=== PATIENT | male | born 1995 | race Two or more races ===

== ENCOUNTER 2016-10-06 09:45 | Outpatient (RCR) | payer OTHER, MEDICAID ==
[2016-10-11] MEDS ORDERED: ZOLO100T PO (12:39)
[2017-01-21] MEDS ORDERED: GABA-283 PO (09:30)
== END 2016-10-15 | disposition home or self-care (01) ==
LOC: M PT 09:45
PROVIDERS: ATTEND Orthopaedic Surgery
DX: Z51.89 Encounter for other specified aftercare (principal); M25.579 Pain in unspecified ankle and joints of unspecified foot

== ENCOUNTER 2016-10-11 12:24 | Inpatient (IN) | payer OTHER, MEDICAID ==
[~2016-10-11] VITALS: Ht 175.3 cm; Wt 94.2 kg
[2016-10-11] MEDS ORDERED: ZOLO100T PO (12:39)
[2016-10-11 13:25] LABS: MEAN CORPUSCULAR HEMOGLOBIN 30.9 pg (27.0-33.0); MEAN CORPUSCULAR VOLUME 88.2 fl (80.0-96.0); RED CELL DISTRIBUTION WIDTH 12.1 % (11.5-14.5); WHITE BLOOD COUNT 9.2 K/mm3 (4.0-10.0)
[2016-10-11 13:35] LABS: METHADONE URINE NEGATIVE (NEGATIVE)
[2016-10-11 13:45] LABS: ALBUMIN 4.5 GM/DL (3.2-5.2); ALBUMIN/GLOBULIN RATIO 1.29 (1.00-1.93); ALKALINE PHOSPHATASE 88 U/L (45-117); ALT/SGPT 32 U/L (12-78); ANION GAP 6 MEQ/L (8-16); AST/SGOT 24 U/L (15-37); BILIRUBIN,DIRECT 0.1 MG/DL (0.0-0.2); BILIRUBIN,TOTAL 0.4 MG/DL (0.2-1.0); BLOOD UREA NITROGEN 15 MG/DL (7-18); CALCIUM LEVEL 9.5 MG/DL (8.5-10.1); CARBON DIOXIDE LEVEL 29 MEQ/L (21-32); CHLORIDE LEVEL 103 MEQ/L (98-107); CREATININE FOR GFR 0.76 MG/DL (0.70-1.30); GLOMERULAR FILTRATION RATE > 60.0 (>60); GLUCOSE, FASTING 93 MG/DL (70-105); POTASSIUM SERUM 4.3 MEQ/L (3.5-5.1); SODIUM LEVEL 138 MEQ/L (136-145)
[2016-10-11 21:09] VITALS: BP 146/80
[2016-10-11] MEDS ORDERED: MOM 30ML SUSPENSION UDC PO PRN (21:15)
[2016-10-11] MEDS ORDERED: traZODone 50 MG TAB PO PRN (21:15)
[2016-10-11] MEDS ORDERED: MAALOX 30 ML SUSP *UDC PO PRN (21:15)
[2016-10-12 06:36] VITALS: BP 125/61
--- NOTE | 2016-10-12 08:58 | HPEPDOC ---
Medical History and Physical Date of Admission Oct 11, 2016 at 16:31 History and Physical PCP: Dr Ryan Heaton SC ATTENDING: Dr. Fernando Chacko HPI: 21yoM admitted to [facility] for unspecified depressive disorder, being medically examined today. No acute medical complaints today. Denies any fevers, chills, weakness, fatigue, HEAD, CP, SOB, cough, palpitations, abdominal pain, N/V /D or changes in bowel or bladder habits. PMHx: Depression Anxiety PSHX: Left index finger laceration repair SOCHX: Resides in: [facility] Marital Status: Single Kids: None Employment: Unemployed Tobacco use: Denies ETOH: Denies Illicit Drugs: Patient states last used marijuana June 2016 IV Drug Use: Denies Tattoos done unprofessionally: Denies FAMHX: Mother: Alive, COPD, history of heroin use Father: Alive, heroin use Siblings: 2 sisters, one brother Alive, unknown Children: None Unexpected deaths due to medical reasons: None. ROS: As noted in HPI, otherwise 11pt ROS of systems reviewed and remarkable only for recent right ankle sprain. Patient states he was playing basketball when he twisted his ankle. He subsequently wore a brace and is currently attending physical therapy. PE: GEN: 21 yo M, appears stated age. Well-nourished, well developed. No acute distress. Alert and oriented x 3. Pleasant, interactive. HEENT: Normocephalic, atraumatic. Pupils are equal, round, and reactive to light. Extraocular movements are intact. No nystagmus appreciated. Sclera are nonicteric. Conjunctiva without injection. Nose midline. Nasal turbinates without bogginess. EACs both patent BL. TMs both visualized and pereyra with good cone of light, no bulging or erythema. No facial asymmetry. Moist mucous membranes. Dentition fair. Pharynx pink and moist, no cobblestoning. Neck supple , trachea midline. No lymphadenopathy or thyromegaly appreciated. CHEST: Regular rate and rhythm, +S1, +S2 LUNGS: Clear to auscultation bilaterally. No wheezes, rales, or rhonchi. Breathing appears symmetric and easy. Patient is speaking in full sentences. No accessory muscle use. ABD: Round, soft, non-tender, non-distended. +Bowel sounds throughout. No rebound or guarding. No costovertebral angle tenderness. EXT: Pulses 2+ bilaterally dorsalis pedis and radial. No lower extremity edema appreciated. SKIN: [place], dry, warm. Capillary refill <2sec. No rashes. NEURO: Alert and oriented x 3. Cranial nerves III-XII are intact. No focal deficits appreciated. EKG: Pending. A&P: 21yoM admitted to [facility] for unspecified depressive disorder 1. Psych. Plan per Psychiatry. Obtain baseline EKG to assure the safety of psychiatric medications as they can prolong the QT interval. 2. Recent right ankle sprain. Patient is no longer wearing a brace. Resume physical therapy as outpatient following discharge. 3. Follow up with PCP on discharge. 4. Staff member Nolan present throughout exam. Vital Signs Vital Signs Date Time Temp Pulse Resp B/P (MAP) Pulse Ox O2 Delivery O2 Flow Rate FiO2 10/12/16 06:36 98.7 78 18 125/61 (82) 10/11/16 20:27 98 Room Air Laboratory Data Labs 24H Laboratory Tests 2 10/11/16 13:08: Anion Gap 6L, Glomerular Filtration Rate > 60.0, Calcium Level 9.5, Aspartate Amino Transf (AST/SGOT) 24, Alanine Aminotransferase (ALT/SGPT) 32, Alkaline Phosphatase 88, Total Bilirubin 0.4, Direct Bilirubin 0.1, Total Protein 8.0, Albumin 4.5, Albumin/Globulin Ratio 1.29, Thyroid Stimulating Hormone (TSH) 0.555, Salicylates Level < 1.7L, Urine Amphetamines Screen NEGATIVE, Urine Benzodiazepines Screen NEGATIVE, Urine Opiates Screen NEGATIVE, Urine Methadone Screen NEGATIVE, Acetaminophen Level < 2.0L, Urine Barbiturates Screen NEGATIVE , Urine Phencyclidine Screen NEGATIVE, Urine Cocaine Metabolite Screen NEGATIVE , Urine Cannabinoids Screen NEGATIVE, Ethyl Alcohol Level < 0.003 CBC/BMP Laboratory Tests 10/11/16 13:08 Red Blood Count 5.27, Mean Corpuscular Volume 88.2, Mean Corpuscular Hemoglobin 30.9, Mean Corpuscular Hemoglobin Concent 35.0, Red Cell Distribution Width 12.1 Home Medications Scheduled Sertraline Hcl (Zoloft) 100 Mg Tab, 100 MG PO DAILY Allergies Coded Allergies: No Known Allergies (Unverified , 10/11/16) Leah Padilla Oct 12, 2016 08:58
[2016-10-12] MEDS ORDERED: SERTRALINE 100 MG TAB PO SCH (09:00)
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
[2016-10-12] MEDS: buPROPion 75 MG TAB PO SCH (16:02)
[2016-10-12 18:16] VITALS: BP 132/68
[2016-10-12] MEDS: DIVALPROEX 250 MG TAB PO SCH (21:13)
[2016-10-12] MEDS: ACETAMINOPHEN TAB 650MG DOSE (2X325MG) PO PRN (21:13)
[2016-10-12] MEDS: QUEtiapine FUMARATE 50 MG TAB PO PRN (22:25)
[2016-10-13 06:37] VITALS: BP 117/64
--- NOTE | 2016-10-13 07:45 | ECGEPIP ---
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
[2016-10-13] MEDS: buPROPion 75 MG TAB PO SCH (08:18)
[2016-10-13] MEDS: DIVALPROEX 250 MG TAB PO SCH ×2 (08:19→21:56)
[2016-10-13 18:10] VITALS: BP 132/75
[2016-10-13] MEDS: ACETAMINOPHEN TAB 650MG DOSE (2X325MG) PO PRN (19:13)
--- NOTE | 2016-10-13 19:16 | IPN ---
DATE: 10/13/2016 21-year-old male with history of depression and substance abuse admitted for depression and suicidal ideation. SUBJECTIVE: "I feel about the same." OBJECTIVE: No major changes from yesterday. The patient denies any side-effect from the medication. The patient reports slept better with the help of the treatment. No evidence of psychotic symptoms. No auditory or visual hallucinations or delusions. The patient is interacting better with other patients and staff. Has tendency to remain by himself in his room. MENTAL STATUS EXAMINATION: The patient dressed in [facility]. The patient is cooperative. Has poor eye contact. His speech is slow and monotone. Mood is depressed and anxious. Affect is restricted. No evidence of delusions or hallucinations. Memory is fair. The patient is fully oriented. Associations are intact. Thinking is logical. Thought content is appropriate. The patient is able to contract for safety during his hospitalization and denies suicidal or homicidal ideation during the interview. Insight and judgment is poor. ASSESSMENT: 1. Depression. 2. Suicidal ideation. 3. Substance abuse. PLAN: 1. Continue with Depakote 250 mg by mouth twice a day. 2. Continue with Seroquel 50 mg by mouth a day. 3. Continue Wellbutrin 75 mg by mouth every morning. 4. Continue close observation. 5. Continue medication management, individual and group therapy.
[2016-10-13] MEDS: QUEtiapine FUMARATE 50 MG TAB PO PRN (21:56)
[2016-10-14 06:45] VITALS: BP 118/58
[2016-10-14] MEDS: buPROPion 75 MG TAB PO SCH ×2 (08:54→20:52)
[2016-10-14] MEDS: DIVALPROEX 250 MG TAB PO SCH (08:55)
[2016-10-14] MEDS: ACETAMINOPHEN TAB 650MG DOSE (2X325MG) PO PRN ×2 (08:55→20:53)
--- NOTE | 2016-10-14 16:02 | IPN ---
DATE: 10/14/2016 A 21-year-old male with history of depression and substance abuse admitted for depression and suicidal ideation. SUBJECTIVE: "I'm feeling about the same." OBJECTIVE: Very little changes since admission. The patient continues to have tendency to stay in the room with little interaction with other patients and staff. The patient is tolerating well the medication. Denies side effects. No evidence of psychotic symptoms. No auditory or visual hallucinations or delusions. MENTAL STATUS EXAMINATION: The patient is dressed in [facility]. The patient is cooperative, has poor eye contact. Speech is soft and monotone. Mood is depressed and anxious. Affect is restricted. There is no evidence of delusions or hallucinations. Memory is fair. The patient is fully oriented. Associations are intact. Thinking is logical. Thought content is appropriate. The patient is able to contract for safety during his hospitalization and denies suicidal or homicidal ideation during the interview. Insight and judgment is limited. ASSESSMENT: 1. Depression. 2. Suicidal ideation. 3. Substance abuse. PLAN: 1. Increase Depakote to 500 mg by mouth twice a day. 2. Continue with Seroquel 50 mg by mouth at bedtime as needed for insomnia. 3. Increase Wellbutrin to 75 mg by mouth twice a day. 4. Continue medication management, individual and group therapy.
[2016-10-14 18:00] VITALS: BP 125/67
[2016-10-14] MEDS: DIVALPROEX 500 MG TAB PO SCH (20:52)
[2016-10-14] MEDS: QUEtiapine FUMARATE 50 MG TAB PO PRN (22:57)
[2016-10-15 06:00] VITALS: BP 106/54
[2016-10-15] MEDS ORDERED: IBUPROFEN 600 MG TAB PO ONE (09:30)
[2016-10-15] MEDS: DIVALPROEX 500 MG TAB PO SCH ×2 (09:47→22:02)
[2016-10-15] MEDS: buPROPion 75 MG TAB PO SCH ×2 (09:47→22:02)
--- NOTE | 2016-10-15 15:41 | IPN ---
DATE: 10/15/2016 A 21-year-old male with a history of depression and substance abuse admitted to our unit with significant symptoms of depression and suicidal thoughts. SUBJECTIVE: "I'm feeling about the same." OBJECTIVE: Patient continues depressed with intermittent suicidal thoughts. Has very little interaction with other patients and staff. Has tendency to stay by himself in the room. Patient states that he is frustrated with "these mood changes." Patient is compliant with the medication and denies side effect. MENTAL STATUS EXAMINATION: Patient is dressed in [facility]. Patient has poor eye contact. Speech is slow and monotone. Mood is depressed and anxious. Affect is restricted. No evidence of delusions or hallucinations. Memory, attention, and concentration are fair. Patient continues to have intermittent suicidal thoughts. Insight and judgment are limited. ASSESSMENT: 1. Depression. 2. Suicidal ideation. 3. Substance abuse. PLAN: 1. Continue Depakote 500 mg by mouth twice a day. 2. Continue Seroquel 50 mg by mouth at bedtime as needed for insomnia. 3. Continue Wellbutrin 75 mg by mouth twice a day. 4. Continue medication management, individual and group therapy.
[2016-10-15 18:22] VITALS: BP 138/70
[2016-10-15] MEDS: QUEtiapine FUMARATE 50 MG TAB PO PRN (22:48)
[2016-10-16 06:29] VITALS: BP 141/65
[2016-10-16] MEDS: buPROPion 75 MG TAB PO SCH ×2 (08:23→20:51)
[2016-10-16] MEDS: DIVALPROEX 500 MG TAB PO SCH ×2 (08:23→20:51)
[2016-10-16] MEDS: IBUPROFEN 400 MG TAB PO PRN ×2 (08:25→21:28)
[2016-10-16 18:00] VITALS: BP 121/60
[2016-10-16] MEDS: QUEtiapine FUMARATE 50 MG TAB PO PRN (21:28)
[2016-10-17 06:18] VITALS: BP 135/71
[2016-10-17] MEDS: DIVALPROEX 500 MG TAB PO SCH ×2 (08:46→22:00)
[2016-10-17] MEDS: buPROPion 75 MG TAB PO SCH ×2 (08:46→21:59)
[2016-10-17 18:39] VITALS: BP 128/60
[2016-10-18 06:40] VITALS: BP 92/52
[2016-10-18] MEDS: buPROPion 75 MG TAB PO SCH ×2 (09:29→21:40)
[2016-10-18] MEDS: DIVALPROEX 500 MG TAB PO SCH ×2 (09:29→21:40)
[2016-10-18 18:06] VITALS: BP_SYST 124; BP_SYST 137; BP_DIAS 66; BP_DIAS 68
[2016-10-18] MEDS: IBUPROFEN 400 MG TAB PO PRN (21:41)
--- NOTE | 2016-10-18 22:37 | IPN ---
DATE: 10/18/2016 21-year-old male with a history of depression and substance abuse, admitted to our unit for depression and suicidal ideation. SUBJECTIVE: "I have a lot of pain." OBJECTIVE: The patient's eye contact is poor. Facial expression is restricted. The patient appears angry and frustrated. When discussed these facts with the patient, he stated that it is difficult to get treatment with "pain all day long." We discussed the fact that he has problems with opiate addiction and also the fact that he is in treatment against his will. He was placed at [facility] after a court order. The team states that the patient has tendency to project blame and there is some access to symptoms that are showing up. The patient also reports some degree of sedation with Depakote. MENTAL STATUS EXAMINATION: The patient is dressed in [facility]. The patient has poor eye contact. Speech is soft and monotone. Mood is depressed and anxious, appears frustrated. Affect is restricted. No evidence of delusions or hallucinations. Memory, attention and concentration are fair. The patient continues to report intermittent suicidal thoughts. Insight and judgment are limited. ASSESSMENT: 1. Depression. 2. Suicidal ideation. 3. Substance abuse. PLAN: 1. Continue Depakote 500 mg by mouth twice a day. 2. We will get valproic level and CMP tomorrow morning. 3. Continue Seroquel 50 mg by mouth at night as needed for insomnia. 4. Continue Wellbutrin 75 mg by mouth twice a day. 5. Continue medication management, individual and group therapy.
[2016-10-18] MEDS: QUEtiapine FUMARATE 50 MG TAB PO PRN (23:07)
[2016-10-19 06:36] VITALS: BP 113/61
[2016-10-19 07:31] LABS: ALBUMIN 3.7 GM/DL (3.2-5.2); ALBUMIN/GLOBULIN RATIO 1.19 (1.00-1.93); ALKALINE PHOSPHATASE 70 U/L (45-117); ALT/SGPT 32 U/L (12-78); ANION GAP 8 MEQ/L (8-16); AST/SGOT 12 U/L (15-37); BILIRUBIN,TOTAL 0.3 MG/DL (0.2-1.0); BLOOD UREA NITROGEN 17 MG/DL (7-18); CARBON DIOXIDE LEVEL 29 MEQ/L (21-32); CHLORIDE LEVEL 106 MEQ/L (98-107); CREATININE FOR GFR 0.91 MG/DL (0.70-1.30); GLOMERULAR FILTRATION RATE > 60.0 (>60); GLUCOSE, FASTING 89 MG/DL (70-105); POTASSIUM SERUM 4.4 MEQ/L (3.5-5.1); SODIUM LEVEL 143 MEQ/L (136-145); TOTAL PROTEIN 6.8 GM/DL (6.4-8.2)
[2016-10-19] MEDS: buPROPion 75 MG TAB PO SCH ×2 (08:23→20:19)
[2016-10-19] MEDS: DIVALPROEX 500 MG TAB PO SCH ×2 (08:23→20:19)
[2016-10-19 18:00] VITALS: BP 130/60
[2016-10-19] MEDS: QUEtiapine FUMARATE 50 MG TAB PO PRN (20:19)
[2016-10-19] MEDS: OLANZapine ORAL DISINTEGRATING TAB 5MG PO PRN (20:19)
[2016-10-19] MEDS ORDERED: QUEtiapine FUMARATE 100 MG TAB PO STA (22:26)
[2016-10-20 07:00] VITALS: BP 121/58
[2016-10-20] MEDS: DIVALPROEX 500 MG TAB PO SCH ×2 (09:01→22:11)
[2016-10-20] MEDS: buPROPion 75 MG TAB PO SCH (09:01)
[2016-10-20 18:00] VITALS: BP 157/82
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
[2016-10-20] MEDS: QUEtiapine FUMARATE 50 MG TAB PO PRN (22:10)
[2016-10-20] MEDS: IBUPROFEN 400 MG TAB PO PRN (22:11)
[2016-10-21 06:29] VITALS: BP 138/78
[2016-10-21] MEDS: buPROPion **XL** TABLET 150MG (WELLBUTRIN XL) PO SCH (08:46)
[2016-10-21] MEDS: DIVALPROEX 250 MG TAB PO SCH (08:46)
--- NOTE | 2016-10-21 08:58 | IPNPDOC ---
General Date of Service/Time The patient was seen on 10/21/16 at 08:51. Chief complaint The patient is a 21-year-old male admitted with a reason for visit of Unspecified Depressive Disorder. Pain management is asked to see in regards to patient's complaint of left jaw pain and right ankle pain. ]. Progress Note SUBJECTIVE: Patient is a -year-old [RACE] [GENDER] with OBJECTIVE PHYSICAL EXAMINATION: VITAL SIGNS: Please see below. GENERAL: HEENT: CARDIOVASCULAR: . RESPIRATORY: . ABDOMINAL: EXTREMITIES: NEUROLOGICAL: PSYCHOLOGICAL: IMAGING: ASSESSMENT AND PLAN: This is a -year-old [RACE] [GENDER] with . PROBLEMS: 1. : . 2. : . 3. : . DISPOSITION: Full Note to follow. Pt seen and examined this AM. Recommend starting GAbapentin 300 mg bid for jaw and ankle pain. Recommend Voltaren gel 2 Gms to ankle and 1 gm to left jaw q 8 hrs. Consider tizanidine 2mg bid for muscle tightness in left jaw and neck. I discussed with the patient that we would not be recommending or using any opiates for pain. Consider left ankle support or brace. Allergies Allergies: Coded Allergies: No Known Allergies (Unverified , 10/11/16) VS,Fishbone, I+O VS, Fishbone, I+O Vital Signs Date Time Temp Pulse Resp B/P (MAP) Pulse Ox O2 Delivery O2 Flow Rate FiO2 10/21/16 06:29 97.5 71 16 138/78 (98) 10/20/16 07:00 Room Air Catalina Ruby Oct 21, 2016 08:58
[2016-10-21] MEDS ORDERED: DICLOFENAC EPOLAMINE 1.3 % PATCH TOP PRN (14:45)
--- NOTE | 2016-10-21 15:44 | IPN ---
DATE: 10/21/2016 21-year-old male with history of depression and substance abuse admitted to our unit with significant symptoms of depression and suicidal ideation. SUBJECTIVE: "I need medication for my pain." OBJECTIVE: No major changes. Patient continues depressed with poor eye contact, sad, restricted facial expression, psychomotor retardation. Patient is sleeping more than 12 hours a day. He reports excessive sedation from medication, although his Depakote has been decreased. MENTAL STATUS EXAMINATION: Patient is dressed in casual clothes. Patient is cooperative, has poor eye contact. His speech is slow and monotone. Mood is depression and anxious. Affect is restricted. No evidence of delusions or hallucinations. Memory, attention, and concentration are fair. Patient is able to contract for safety while in the hospital. Insight and judgment is limited. ASSESSMENT: 1. Depression. 2. Suicidal ideation. 3. Substance abuse. PLAN: 1. Continue with Depakote 250 mg by mouth every morning and 500 mg by mouth nightly. 2. Discontinue Seroquel. 3. Continue Wellbutrin XL 300 mg by mouth every morning. 4. Continue medication management, individual and group therapy.
[2016-10-21] MEDS: OLANZapine ORAL DISINTEGRATING TAB 5MG PO PRN ×2 (16:48→23:26)
[2016-10-21] MEDS: DICLOFENAC EPOLAMINE 1.3 % PATCH TOP SCH ×2 (17:17→21:00)
[2016-10-21 18:14] VITALS: BP 139/65
[2016-10-21] MEDS: DIVALPROEX 500 MG TAB PO SCH (21:52)
[2016-10-21] MEDS: GABAPENTIN 300 MG CAP PO SCH (21:53)
[2016-10-21] MEDS: tiZANidine 4 MG TAB PO SCH (21:53)
[2016-10-22 06:21] VITALS: BP 140/81
[2016-10-22] MEDS: GABAPENTIN 300 MG CAP PO SCH ×2 (08:58→21:35)
[2016-10-22] MEDS: DICLOFENAC EPOLAMINE 1.3 % PATCH TOP SCH ×2 (08:58→21:00)
[2016-10-22] MEDS: tiZANidine 4 MG TAB PO SCH ×2 (08:58→21:36)
[2016-10-22] MEDS: buPROPion **XL** TABLET 150MG (WELLBUTRIN XL) PO SCH (08:58)
[2016-10-22] MEDS: DIVALPROEX 250 MG TAB PO SCH (08:58)
[2016-10-22 18:00] VITALS: BP 147/77
[2016-10-22] MEDS ORDERED: hydrOXYzine 50 MG TAB PO PRN (20:30)
[2016-10-22] MEDS ORDERED: LORazepam 1 MG TAB PO STA (20:52)
[2016-10-22] MEDS ORDERED: OLANZapine 5 MG TAB PO PRN (21:00)
[2016-10-22] MEDS: DIVALPROEX 500 MG TAB PO SCH (21:36)
[2016-10-22] MEDS: diphenhydrAMINE 25 MG CAP PO PRN (21:51)
--- NOTE | 2016-10-22 22:59 | IPN ---
DATE: 10/22/2016 A 21-year-old male with history of depression and substance abuse, admitted to our unit with significant symptoms of depression and suicidal ideation. SUBJECTIVE: "When do you think I can go home?" OBJECTIVE: The patient continues depressed, although this morning he appears to have brighter affect and less psychomotor retardation. The patient has been staying in his room and interacting little with other patients and staff. The patient appears to be less sedated with the decrease of Depakote to 250 every morning and 500 mg by mouth at bedtime. No evidence of psychotic symptoms. His motivation is limited at this time, probably due to his anger and frustration. MENTAL STATUS EXAMINATION: The patient is dressed in casual clothes. The patient is cooperative, has poor eye contact. Speech is slow and monotone. Affect is restricted. Mood is depressed and anxious. No delusions or hallucinations. Memory, attention and concentration are fair. Patient is able to contract for safety during his hospitalization. Insight and judgment are limited. ASSESSMENT: 1. Depression. 2. Suicidal ideation. 3. Substance abuse. PLAN: 1. Continue with Depakote 250 mg by mouth every morning and 500 mg by mouth at bedtime. 2. Continue Wellbutrin XL 300 mg by mouth every morning. 3. Continue medication management, individual and group therapy.
[2016-10-22] MEDS: LORazepam 1 MG TAB PO PRN (23:30)
[2016-10-23] MEDS ORDERED: LORazepam 2 MG/ML VIAL (J2060) IM STA (01:17)
[2016-10-23 01:30] VITALS: BP 148/82
[2016-10-23] MEDS ORDERED: cloNIDine 0.1 MG TAB PO ONE (01:30)
[2016-10-23 01:45] VITALS: BP 142/92
[2016-10-23] MEDS: PROPRANOLOL 20 MG TAB PO PRN ×3 (03:30→20:05)
[2016-10-23 06:28] VITALS: BP 152/86
--- NOTE | 2016-10-23 06:54 | ECGEPIP ---
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
[2016-10-23] MEDS: tiZANidine 4 MG TAB PO SCH ×2 (08:41→20:05)
[2016-10-23] MEDS: buPROPion **XL** TABLET 150MG (WELLBUTRIN XL) PO SCH (08:41)
[2016-10-23] MEDS: DIVALPROEX 250 MG TAB PO SCH (08:41)
[2016-10-23] MEDS: GABAPENTIN 300 MG CAP PO SCH ×3 (08:41→20:05)
[2016-10-23] MEDS: LORazepam 1 MG TAB PO PRN ×2 (08:43→19:25)
[2016-10-23] MEDS: DICLOFENAC EPOLAMINE 1.3 % PATCH TOP SCH ×2 (08:45→20:07)
[2016-10-23] MEDS: IBUPROFEN 400 MG TAB PO PRN (11:35)
[2016-10-23] MEDS: diphenhydrAMINE 25 MG CAP PO PRN ×2 (11:52→20:05)
[2016-10-23 18:00] VITALS: BP 127/71
[2016-10-23] MEDS: DIVALPROEX 500 MG TAB PO SCH (20:05)
[2016-10-23] MEDS: QUEtiapine FUMARATE 50 MG TAB PO ONE ×2 (22:31→22:52)
[2016-10-24 06:40] VITALS: BP 122/72
[2016-10-24] MEDS: LORazepam 1 MG TAB PO PRN ×2 (07:10→19:29)
[2016-10-24] MEDS: buPROPion **XL** TABLET 150MG (WELLBUTRIN XL) PO SCH (08:17)
[2016-10-24] MEDS: tiZANidine 4 MG TAB PO SCH ×2 (08:17→20:09)
[2016-10-24] MEDS: GABAPENTIN 300 MG CAP PO SCH ×3 (08:17→20:08)
[2016-10-24] MEDS: DIVALPROEX 250 MG TAB PO SCH (08:18)
[2016-10-24] MEDS: DICLOFENAC EPOLAMINE 1.3 % PATCH TOP SCH ×2 (08:19→20:10)
[2016-10-24] MEDS: diphenhydrAMINE 25 MG CAP PO PRN ×2 (10:34→20:08)
[2016-10-24 10:47] VITALS: BP 120/78
[2016-10-24] MEDS: OLANZapine ORAL DISINTEGRATING TAB 5MG PO PRN ×2 (11:29→20:50)
[2016-10-24] MEDS: PROPRANOLOL 20 MG TAB PO PRN ×2 (13:55→22:08)
--- NOTE | 2016-10-24 14:10 | IPN ---
DATE OF SERVICE: 10/23/2016 The patient today complains that he continues to have a lot of anxiety. He also recognizes that he does not feel that he is ready to go home at this point, although he is denying any suicidal ideations. At this point, the patient's mental status exam indicates that he is alert and oriented times three. Eye contact is fair. Psychomotor activity is slightly increased due to anxiety. There is no formal thought disorder noted. Mood is anxious. Affect full range and appropriate. He is not psychotic, suicidal, or homicidal. Concentration and memory are intact. Insight and judgment fair. DIAGNOSES: Unspecified depressive disorder. Substance-induced mood disorder. TREATMENT PLAN: At this point, I recommended to the patient his anxiety is so intense that he should be on an antidepressant that is better for anxiety, such as an selective serotonin reuptake inhibitor (SSRI). He insists that Wellbutrin has helped him in the past for his depression, but he is not willing to try an SSRI at this point. I also recommended that we start him on an antipsychotic medication in addition to his Depakote. He said he used to be on Seroquel first, but he had some restlessness, and that was discontinued. He wanted to know if I could increase the Ativan, but he is already on propranolol twice a day as needed anxiety, and my concern is that the patient has a serious problem with substance abuse. I discussed with the patient that we need to find medications that help his anxiety that he can be discharged on because he is not going to be discharged on Ativan. The patient was recently started on Neurontin 300 mg twice a day for pain, and so I am going to increase the Neurontin to 300 mg three times a day because this can also be effective for anxiety. He has already been placed on propranolol 20 mg twice a day and Benadryl 50 mg as needed for anxiety. [facility]
[2016-10-24] MEDS: IBUPROFEN 400 MG TAB PO PRN (17:25)
[2016-10-24 18:00] VITALS: BP 145/78
[2016-10-24] MEDS: DIVALPROEX 500 MG TAB PO SCH (20:08)
[2016-10-24] MEDS ORDERED: QUEtiapine FUMARATE 50 MG TAB PO ONE (23:30)
--- NOTE | 2016-10-25 04:27 | IPN ---
DATE OF SERVICE: 10/24/2016 The patient states that he continues to have a lot of anxiety. He is using all of his doses of Ativan and hydroxyzine that he has ordered, but he says he continues to be anxious. MENTAL STATUS EXAMINATION: This patient is alert and oriented times three. Eye contact is very good. Psychomotor activity appears to be decreased, although he says that he is anxious. There is no formal thought disorder noted. His mood is anxious. Affect is restricted, but appropriate to his mood. He is not psychotic. Denies any suicidal ideation. Concentration is fair. Memory is intact. Insight and judgment is poor. DIAGNOSES: 1. Unspecified depressive disorder. 2. Substance-induced mood disorder. 3. Opioid use disorder. 4. Cannabis use disorder. TREATMENT PLAN: At this point, I discussed with the patient that he is already on a lot of medications. I feel the Ativan is contraindicated because of his substance abuse problem and that will probably be discontinued before he gets discharged from the unit. Last night when he complained of continued anxiety, we had tried his Ativan and hydroxyzine, I gave him a prescription for Seroquel 50 mg nightly and he says he did finally fall asleep after that, so I suggest that we restart the Seroquel at bedtime and his answer was that then he was going to have to worry about depending on taking a medicine to help him go to sleep at night. I made it clear to the patient that Seroquel would be a good medicine to take as long as he needs to if it helps him sleep as it is not addictive. I explained that it also works together to help the antidepressant become more effective. In this case, he takes Wellbutrin. Again, I advised the patient that for his severe anxiety I recommend a selective serotonin reuptake inhibitor (SSRI) antidepressant, but he insists that Wellbutrin is the only antidepressant that he wants to take and I have explained to him that Wellbutrin is not as effective for anxiety. It seems that the patient is set on what it is that he wants and clearly what he wants is more benzodiazepine and I explained to him that this is indicating that he is becoming addicted to the Ativan since it seems that he spends the whole day focused on when he can have his next Ativan.
[2016-10-25 06:44] VITALS: BP 114/56
[2016-10-25] MEDS: DICLOFENAC EPOLAMINE 1.3 % PATCH TOP SCH ×2 (08:36→20:51)
[2016-10-25] MEDS: DIVALPROEX 250 MG TAB PO SCH (08:37)
[2016-10-25] MEDS: buPROPion **XL** TABLET 150MG (WELLBUTRIN XL) PO SCH (08:37)
[2016-10-25] MEDS: GABAPENTIN 300 MG CAP PO SCH (08:37)
[2016-10-25] MEDS: tiZANidine 4 MG TAB PO SCH ×2 (08:38→20:52)
[2016-10-25] MEDS: LORazepam 1 MG TAB PO PRN ×2 (08:47→21:04)
[2016-10-25] MEDS: OLANZapine ORAL DISINTEGRATING TAB 5MG PO PRN ×2 (09:45→16:00)
[2016-10-25 14:24] VITALS: BP 140/72
[2016-10-25] MEDS: PROPRANOLOL 20 MG TAB PO PRN (14:24)
[2016-10-25] MEDS: GABAPENTIN 400 MG CAP PO SCH ×2 (15:35→20:52)
[2016-10-25] MEDS: diphenhydrAMINE 25 MG CAP PO PRN (15:37)
--- NOTE | 2016-10-25 17:33 | IPN ---
DATE: 10/25/2016 VITAL SIGNS: Temperature 95.2, pulse 65, respirations 16, blood pressure 114/56. CURRENT MEDICATIONS: - gabapentin 300 mg three times a day - Depakote 250 mg every morning, 500 mg at bedtime - Wellbutrin XL 300 mg every morning - Zyprexa 5 mg every 6 hours as needed HISTORY OF PRESENT ILLNESS: This is a 21-year-old White male with a history of depression and cannabis use disorder. Patient admitted on 939 status. Patient had reported suicidal ideation to his [facility] Counselor. Patient had taken an overdose on Benadryl in and hospitalized at [facility] in [place] in the past. Patient does complain of anxiety symptoms. Reports a history of panic attacks and obsessive compulsive disorder (OCD). He does have rituals. He has been on SSRI's in the past without benefit. He claims he has been on Zoloft, Lexapro and Celexa without any benefit for his anxiety or OCD. He does report having a history of manic symptoms in the past. Patient was current on probation. Staff are working on getting him into a inpatient rehabilitation. He hopes to return to [facility] upon discharge from that program. Currently he states his appetite is good. His weight is stable. Patient reports sleeping well at night with the psychotropics. He claims his panic symptoms are worse being locked up here on the unit and that he always feels less anxious and panicky when he is at constraint through a hospital setting. MENTAL STATUS EXAMINATION: Patient is alert, oriented, and cooperative. No current signs of depression. Anxiety is minimal, not homicidal, not suicidal, no current signs of dangerousness. Insight and judgment are fair. He is not psychotic. Not hearing voices. No paranoia or though disorder. No signs of memory deficits or dangerousness. LABORATORY DATA: Depakote level 73.8 on 10/19 which is therapeutic. DIAGNOSES: 1. Bipolar depression depressed. 2. Opiate use disorder. 3. Cannabis use disorder. 4. Panic anxiety disorder. 5. OCD. PLAN: Continue current psychotropics. Staff working on discharge planning with transfer to an inpatient rehabilitation facility. Increase gabapentin to 400 mg three times a day to help with anxiety symptoms.
[2016-10-25 18:00] VITALS: BP 140/70
[2016-10-25] MEDS: DIVALPROEX 500 MG TAB PO SCH (20:51)
[2016-10-26 06:27] VITALS: BP 116/60
[2016-10-26] MEDS: DIVALPROEX 250 MG TAB PO SCH (08:28)
[2016-10-26] MEDS: GABAPENTIN 400 MG CAP PO SCH ×3 (08:28→21:11)
[2016-10-26] MEDS: tiZANidine 4 MG TAB PO SCH ×2 (08:29→21:10)
[2016-10-26] MEDS: buPROPion **XL** TABLET 150MG (WELLBUTRIN XL) PO SCH (08:29)
[2016-10-26] MEDS: DICLOFENAC EPOLAMINE 1.3 % PATCH TOP SCH ×2 (08:30→21:00)
[2016-10-26] MEDS: OLANZapine ORAL DISINTEGRATING TAB 5MG PO PRN ×2 (09:12→18:24)
[2016-10-26] MEDS: diphenhydrAMINE 25 MG CAP PO PRN ×2 (15:49→21:50)
[2016-10-26] MEDS: IBUPROFEN 400 MG TAB PO PRN (15:51)
--- NOTE | 2016-10-26 17:53 | IPN ---
DATE: 10/26/2016 VITAL SIGNS: Temperature 98.0, pulse 77, respirations 16, blood pressure 116/60. CURRENT MEDICATIONS: - gabapentin 400 mg three times a day - Depakote 250 mg in the morning and 500 mg nightly - Zyprexa 5 mg every 5 hours as needed - Wellbutrin XL 300 mg every morning HISTORY OF PRESENT ILLNESS: The patient reports that his mood is much better. Depressive symptoms are minimal, he does have anxiety symptoms however. He does have a history of panic attacks and obsessive compulsive disorder (OCD). His appetite is good. He sleeps well at night. The patient had been on Zoloft prior to admission. He had also been on Effexor as well and had a very difficult time withdrawing from the Effexor. The patient is still complaining of anxiety symptoms, but otherwise is satisfied with his current psychotropics. The patient has been at the [facility] program and they are willing to take him back to their facility. The patient's family is also supporting this option. A family meeting will be held tomorrow prior to discharge. MENTAL STATUS EXAMINATION: Mood and affect appear good today. Depression is minimal. Anxiety is low. He is not homicidal. He is not suicidal. He is not hearing any voices. No paranoia or thought disorder noted today. No signs of dangerousness. DIAGNOSES: 1. Bipolar disorder, depressed. 2. Panic/anxiety disorder. 3. Obsessive compulsive disorder (OCD). 4. Cannabis use disorder. 5. Opiate use disorder. PLAN: Continue current psychotropics. Will plan for discharge tomorrow back to [facility] and his outpatient psychiatrist.
[2016-10-26 18:00] VITALS: BP 138/83
[2016-10-26] MEDS: DIVALPROEX 500 MG TAB PO SCH (21:11)
[2016-10-27 06:24] VITALS: BP 123/58
[2016-10-27] MEDS: tiZANidine 4 MG TAB PO SCH (09:33)
[2016-10-27] MEDS: buPROPion **XL** TABLET 150MG (WELLBUTRIN XL) PO SCH (09:33)
[2016-10-27] MEDS: GABAPENTIN 400 MG CAP PO SCH (09:33)
[2016-10-27] MEDS: DIVALPROEX 250 MG TAB PO SCH (09:33)
[2016-10-27] MEDS ORDERED: BUPR300T34 PO (10:25)
[2016-10-27] MEDS ORDERED: DEPA1TAB3 PO (10:25)
[2016-10-27] MEDS ORDERED: DEPA250T32 PO (10:25)
[2016-10-27] MEDS ORDERED: GABA-283 PO (10:25)
[2016-10-27] MEDS ORDERED: ZANA4TAB PO (10:25)
[2016-10-27] MEDS: DICLOFENAC EPOLAMINE 1.3 % PATCH TOP SCH (11:20)
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
[2017-01-21] MEDS ORDERED: GABA-283 PO (09:30)
== END 2016-10-27 11:45 | disposition home or self-care (01) | DRG 753 ==
LOC: M ED 14:12 → M ED INP 16:31 → M PSY 20:42
PROVIDERS: ADMIT Psychiatry & Neurology Psychiatry; ATTEND Psychiatry & Neurology Psychiatry
DX: F31.9 Bipolar disorder, unspecified (principal); R45.851 Suicidal ideations; F12.10 Cannabis abuse, uncomplicated; F11.10 Opioid abuse, uncomplicated; F42.9 Obsessive-compulsive disorder, unspecified; F41.0 Panic disorder [episodic paroxysmal anxiety]; Z79.899 Other long term (current) drug therapy; S93.401D Sprain of unspecified ligament of right ankle, subsequent encounter; X58.XXXD Exposure to other specified factors, subsequent encounter; Y99.9 Unspecified external cause status

== ENCOUNTER → 2016-11-11 | Outpatient (REF) | payer OTHER, MEDICAID ==
[~2016-11-11] MED LIST: ABIL1TAB11 PO; ABIL400I IM; BUPR300T34 PO; CIME200T PO; CIME300T91 PO; DEPA1TAB3 PO; DEPA250T32 PO; FLUO0.0216 TOP; FLUO1CRE2 EX; FLUO1CRE2 TOP; GABA-282 PO; GABA-283 PO; IBUPOTC PO; MINI1CAP PO; OLAN5ZYD PO; QUET1TAB8 PO; SERT25TA PO; WELLTAB40 PO; ZANA4TAB PO; ZOLO100T PO
[2016-11-12 09:16] LABS: HEPATITIS B SURFACE ANTIBODY NEGATIVE (POSITIVE)
== END ==
LOC: M SFHCPLAZ 10:49
PROVIDERS: ATTEND Internal Medicine Infectious Disease
DX: F19.10 Other psychoactive substance abuse, uncomplicated (principal); B19.10 Unspecified viral hepatitis B without hepatic coma

== ENCOUNTER 2017-01-12 16:47 | Inpatient (IN) | payer OTHER, MEDICAID ==
[~2017-01-12] VITALS: Ht 175.3 cm; Wt 94.0 kg
[~2017-01-12 16:47] MED LIST changes: -ABIL1TAB11 PO; -ABIL400I IM; -CIME200T PO; -CIME300T91 PO; -FLUO0.0216 TOP; -FLUO1CRE2 EX; -FLUO1CRE2 TOP; -GABA-282 PO; -IBUPOTC PO; -MINI1CAP PO; -OLAN5ZYD PO; -QUET1TAB8 PO; -SERT25TA PO; -WELLTAB40 PO
[2017-01-12] MEDS ORDERED: CIME200T PO (17:05)
[2017-01-12] MEDS ORDERED: FLUO1CRE2 EX (17:05)
[2017-01-12 17:34] LABS: MEAN CORPUSCULAR HEMOGLOBIN 28.6 pg (27.0-33.0); MEAN CORPUSCULAR HGB CONC 34.4 g/dl (32.0-36.5); MEAN CORPUSCULAR VOLUME 83.1 fl (80.0-96.0); RED CELL DISTRIBUTION WIDTH 12.1 % (11.5-14.5); WHITE BLOOD COUNT 8.1 10^3/uL (4.0-10.0)
[2017-01-12 18:16] LABS: METHADONE URINE NEGATIVE (NEGATIVE)
[2017-01-12 18:23] LABS: ALBUMIN 4.3 GM/DL (3.2-5.2); ALBUMIN/GLOBULIN RATIO 1.19 (1.00-1.93); ALKALINE PHOSPHATASE 94 U/L (45-117); ALT/SGPT 28 U/L (12-78); ANION GAP 8 MEQ/L (8-16); AST/SGOT 17 U/L (15-37); BILIRUBIN,DIRECT < 0.1 MG/DL (0.0-0.2); BILIRUBIN,TOTAL 0.3 MG/DL (0.2-1.0); BLOOD UREA NITROGEN 17 MG/DL (7-18); CARBON DIOXIDE LEVEL 29 MEQ/L (21-32); CHLORIDE LEVEL 104 MEQ/L (98-107); CREATININE FOR GFR 1.13 MG/DL (0.70-1.30); GLOMERULAR FILTRATION RATE > 60.0 (>60); GLUCOSE, FASTING 87 MG/DL (70-105); POTASSIUM SERUM 4.3 MEQ/L (3.5-5.1); SODIUM LEVEL 141 MEQ/L (136-145); TOTAL PROTEIN 7.9 GM/DL (6.4-8.2)
[2017-01-12] MEDS ORDERED: IBUPOTC PO (20:28)
[2017-01-12] MEDS ORDERED: CIME300T91 PO (20:28)
[2017-01-12] MEDS ORDERED: GABA-282 PO (20:28)
[2017-01-12] MEDS ORDERED: FLUO0.0216 TOP (20:28)
[2017-01-12] MEDS ORDERED: WELLTAB40 PO (20:28)
[2017-01-12 23:03] VITALS: BP 138/85
[2017-01-12] MEDS ORDERED: MOM 30ML SUSPENSION UDC PO PRN (23:45)
[2017-01-12] MEDS ORDERED: traZODone 50 MG TAB PO PRN (23:45)
[2017-01-12] MEDS ORDERED: MAALOX 30 ML SUSP *UDC PO PRN (23:45)
[2017-01-13] MEDS: GABAPENTIN 300 MG CAP PO SCH ×4 (00:27→21:47)
[2017-01-13 06:00] VITALS: BP 126/59
[2017-01-13] MEDS ORDERED: buPROPion **XL** TABLET 150MG (WELLBUTRIN XL) PO SCH (09:00)
[2017-01-13] MEDS ORDERED: FAMOTIDINE 20 MG TAB PO SCH (09:00)
--- NOTE | 2017-01-13 09:54 | HPEPDOC ---
[facility] Medical History & Physical Date of Admission Jan 12, 2017 History and Physical PCP: Dr Ryan Heaton [place] ATTENDING: Dr. Fernando Chacko HPI: 21yoM admitted to [facility] for bipolar disorder, being medically examined today. No acute medical complaints today. Denies any fevers, chills, weakness, fatigue, HEAD, CP, SOB, cough, palpitations, abdominal pain, N/V/D or changes in bowel or bladder habits. PMHx: Depression Anxiety History of SI Bipolar disorder TMJ History of substance use/IVDU History of abnormal hepatitis B testing, suspected false-positive. Follows with infectious disease, Dr Colon. Plantar warts left foot. Following with Dr. George PSHX: Left index finger laceration repair SOCHX: Resides in: [facility] Marital Status: Single Kids: None Employment: Unemployed Tobacco use: Denies ETOH: Denies Illicit Drugs: History of marijuana, opiates. IV Drug Use: History of heroin. Tattoos done unprofessionally: Denies FAMHX: Mother: Alive, COPD, history of heroin use Father: Alive, heroin use Siblings: 2 sisters, one brother Alive, unknown Children: None Unexpected deaths due to medical reasons: None. ROS: As noted in HPI, otherwise 11pt ROS of systems reviewed and remarkable only for plantar warts left foot. Patient states he is following with podiatry, Dr. George. Patient states he is currently placed on cimetidine 300 mg twice a day and topical fluorouracil for warts. Patient states he was prescribed gabapentin for TMJ as per Dr. Goldstein. PE: GEN: 21 yo M, appears stated age. Well-nourished, well developed. No acute distress. Alert and oriented x 3. Pleasant, interactive. HEENT: Normocephalic, atraumatic. Pupils are equal, round, and reactive to light. Extraocular movements are intact. No nystagmus appreciated. Sclera are nonicteric. Conjunctiva without injection. Nose midline. Nasal turbinates without bogginess. EACs both patent BL. TMs both visualized and pereyra with good cone of light, no bulging or erythema. No facial asymmetry. Moist mucous membranes. Dentition fair. Pharynx pink and moist, no cobblestoning. Neck supple , trachea midline. No lymphadenopathy or thyromegaly appreciated. CHEST: Regular rate and rhythm, +S1, +S2 LUNGS: Clear to auscultation bilaterally. No wheezes, rales, or rhonchi. Breathing appears symmetric and easy. Patient is speaking in full sentences. No accessory muscle use. ABD: Round, soft, non-tender, non-distended. +Bowel sounds throughout. No rebound or guarding. No costovertebral angle tenderness. EXT: Pulses 2+ bilaterally dorsalis pedis and radial. No lower extremity edema appreciated. SKIN: [place], dry, warm. Capillary refill <2sec. No rashes. Several plantar warts are noted on the left foot. NEURO: Alert and oriented x 3. Cranial nerves III-XII are intact. No focal deficits appreciated. EKG: Pending. A&P: 21yoM admitted to [facility] for unspecified depressive disorder 1. Psych. Plan per Psychiatry. Obtain baseline EKG to assure the safety of psychiatric medications as they can prolong the QT interval. 2. Plantar warts. Continue management as per podiatry. Continue outpatient follow-up with podiatry. 3. Follow up with PCP on discharge. 4. History of IVDU. HIV screening negative 11/01. Following with infectious disease, Dr Colon, regarding abnormal hepatitis B testing. [place] to be false- positive. Continue outpatient follow-up. 5. TMJ. Continue gabapentin 300 mg 3 times a day as per Dr. Goldstein. Continue ibuprofen as needed. 6. Staff member Zeferino present throughout exam. Vital Signs Vital Signs Date Time Temp Pulse Resp B/P (MAP) Pulse Ox O2 Delivery O2 Flow Rate FiO2 01/13/17 06:00 98.3 72 16 126/59 (81) Room Air 01/12/17 22:38 100 Laboratory Data Labs 24H Laboratory Tests 2 01/12/17 17:25: Anion Gap 8, Glomerular Filtration Rate > 60.0, Calcium Level 9.0, Aspartate Amino Transf (AST/SGOT) 17, Alanine Aminotransferase (ALT/SGPT) 28, Alkaline Phosphatase 94, Total Bilirubin 0.3, Direct Bilirubin < 0.1, Total Protein 7.9, Albumin 4.3, Albumin/Globulin Ratio 1.19, Thyroid Stimulating Hormone (TSH) 0.786, Salicylates Level < 1.7L, Urine Amphetamines Screen NEGATIVE, Urine Benzodiazepines Screen NEGATIVE, Urine Opiates Screen NEGATIVE, Urine Methadone Screen NEGATIVE, Acetaminophen Level < 2.0L, Urine Barbiturates Screen NEGATIVE , Urine Phencyclidine Screen NEGATIVE, Urine Cocaine Metabolite Screen NEGATIVE , Urine Cannabinoids Screen NEGATIVE, Ethyl Alcohol Level < 0.003 CBC/BMP Laboratory Tests 01/12/17 17:25 Red Blood Count 5.74, Mean Corpuscular Volume 83.1, Mean Corpuscular Hemoglobin 28.6, Mean Corpuscular Hemoglobin Concent 34.4, Red Cell Distribution Width 12.1 Home Medications Scheduled (Cimetidine) 300 Mg Tab, 300 MG PO BID (Fluorouracil) 0.5 % Cre, 1 DOSE TOP QHS APPLY TO WARTS ON FEET Bupropion HCl (Wellbutrin Xl) 300 Mg Tab, 300 MG PO DAILY Gabapentin (Gabapentin) 300 Mg Cap, 300 MG PO TID Scheduled PRN Ibuprofen (Ibuprofen) 200 Mg Tab, 800 MG PO Q6H PRN for PAIN Allergies Coded Allergies: No Known Allergies (Unverified , 10/11/16) Leah Padilla Jan 13, 2017 09:54
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
[2017-01-13 18:00] VITALS: BP 136/67
[2017-01-13] MEDS: QUEtiapine FUMARATE 100 MG TAB PO SCH (21:47)
[2017-01-13] MEDS: IBUPROFEN 800 MG TAB PO PRN (21:48)
[2017-01-13] MEDS: PRAZOSIN 1 MG CAP PO SCH (21:48)
[2017-01-14 06:00] VITALS: BP 117/58
[2017-01-14] MEDS: buPROPion **XL** TABLET 150MG (WELLBUTRIN XL) PO SCH (09:43)
[2017-01-14] MEDS: FAMOTIDINE 20 MG TAB PO SCH (09:43)
[2017-01-14] MEDS: GABAPENTIN 300 MG CAP PO SCH ×3 (09:43→21:51)
[2017-01-14 10:00] VITALS: BP 147/72
[2017-01-14] MEDS: IBUPROFEN 800 MG TAB PO PRN (13:27)
[2017-01-14] MEDS: hydrOXYzine 50 MG TAB PO PRN (13:28)
[2017-01-14] MEDS ORDERED: FLUO1CRE2 TOP (14:36)
[2017-01-14 18:40] VITALS: BP 124/66
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
[2017-01-14] MEDS: QUEtiapine FUMARATE 100 MG TAB PO SCH (21:51)
[2017-01-14] MEDS: PRAZOSIN 1 MG CAP PO SCH (21:51)
[2017-01-14] MEDS: OLANZapine ORAL DISINTEGRATING TAB 5MG PO PRN (21:53)
[2017-01-14] MEDS: FLUOROURACIL 5% TOP SCH (21:57)
--- NOTE | 2017-01-14 23:19 | ECGEPIP ---
Stationary ECG Study [facility] Test Date: 2017-01-13 Pat Name: BHAVIN INMAN Department: Room: [place] [address] Gender: M Twisting Department End Finder: MIAN : 1995 Requested By: Leah Padilla Order Number: [id number] Reading MD: Wyatt Stewart Measurements Intervals [place] Rate: 71 P: 62 MN: 182 QRS: 75 QRSD: 97 T: 40 QT: 363 QTc: 395 Interpretive Statements SINUS RHYTHM LAST TRACING ON 10/23/2016 AT 1:23:36, SINUS TACHYCARDIA WAS THEN NOTED Electronically Signed On 01-14-2017 23:19:20 EDT by Wyatt Stewart
[2017-01-15 06:40] VITALS: BP 122/57
[2017-01-15] MEDS: GABAPENTIN 300 MG CAP PO SCH ×3 (08:54→21:39)
[2017-01-15] MEDS: FAMOTIDINE 20 MG TAB PO SCH (08:54)
[2017-01-15] MEDS: buPROPion **XL** TABLET 150MG (WELLBUTRIN XL) PO SCH (08:54)
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
[2017-01-15] MEDS: OLANZapine ORAL DISINTEGRATING TAB 5MG PO PRN (17:47)
[2017-01-15 18:00] VITALS: BP 140/84
[2017-01-15] MEDS: QUEtiapine FUMARATE 100 MG TAB PO SCH (21:39)
[2017-01-15] MEDS: PRAZOSIN 1 MG CAP PO SCH (21:39)
[2017-01-15] MEDS: hydrOXYzine 50 MG TAB PO PRN (21:50)
[2017-01-15] MEDS: FLUOROURACIL 5% TOP SCH (22:08)
[2017-01-16 06:00] VITALS: BP 148/82
[2017-01-16] MEDS: FAMOTIDINE 20 MG TAB PO SCH (08:38)
[2017-01-16] MEDS: buPROPion **XL** TABLET 150MG (WELLBUTRIN XL) PO SCH (08:38)
[2017-01-16] MEDS: GABAPENTIN 300 MG CAP PO SCH ×3 (08:38→21:05)
[2017-01-16] MEDS: OLANZapine ORAL DISINTEGRATING TAB 5MG PO PRN ×2 (11:25→22:21)
[2017-01-16 18:00] VITALS: BP 157/86
[2017-01-16] MEDS: hydrOXYzine 50 MG TAB PO PRN (19:44)
--- NOTE | 2017-01-16 20:40 | MHIPNPDOC ---
[facility] Progress Note Progress Note DATE OF SERVICE: 01/16/17 HISTORY: Patient is a 21-year-old male with a hx of anxiety & depression as child, possible bipolar disorder (as per patient), and a hx of 2 suicidal attempts prior, who is presenting to [facility] for inpatient admission for suicidal ideation. He arrived to [facility] ED on 01/12/[address] [facility] had the police bring the patient in due to suicidal ideations. Patient had admitted to having suicidal ideations for around a month, but never acted upon them. The SI became worse 2 weeks ago. Denies homicidal ideations. Patient was currently residing at [facility] due to having a court order for his opiate addiction. He has been a resident there for VITAL SIGNS: See below. NEW TEST RESULTS: See below CURRENT MEDICATIONS: See below. MENTAL STATUS EXAMINATION: Patient is a 21-year old male, who is alert, cooperative, dressed in personal close with poor eye contact, guarded, fair hygiene and grooming. Speech: Normal in rate, tone and volume Language skills are Fair Thought processes including: Coherent Thought content: Focused on feeling frustrated when staff wakes him up early in the morning to talk to him because he still very sleepy and is not able to focus. Abstract reasoning, and computation: Not assessed at this time. Description of associations: Good Description of abnormal or psychotic thoughts: Denies Av hallucinations, denies thought delusions, denies SI/HI Judgment: Limited. Insight: Limited Orientation: oriented x 3 Recent and remote memory: Intact Attention span and concentration: Fair Language: Normal. Fund of knowledge: Not assessed at this time Mood: Depressed/irritable Affect: congruent with mood, constricted DIAGNOSES: 1. PTSD 2. BORDERLINE PERSONALITY DISORDER ASSESSMENT: Patient is not feeling depressed today but he is feeling irritable, for that reason he was not happy when he was awakened this morning. He says that he feels better, but he still very anxious because he doesn't know if he is gone about to [facility], which is a rehabilitation treatment program, or if he is going to his grandparents house. I believe the best thing to do is to transfer him to [facility] if they have available because if he goes to his grandparents house probably he will start using drugs or he will engage in impulsive risky behavior. MANAGEMENT PLAN: Will continue on the same medications. will f/u. TIME SPENT: 30 minutes. Vital Signs Vital Signs Vital Signs Date Time Temp Pulse Resp B/P (MAP) Pulse Ox O2 Delivery O2 Flow Rate FiO2 01/16/17 18:00 100.1 105 16 157/86 (109) 01/14/17 10:00 Room Air 01/12/17 22:38 100 Current Medications Current Medications Al Hydrox/Mg Hydrox/Simethicone (Mylanta) 30 ml Q4HP PRN PO HEARTBURN/ INDIGESTION; Start 01/12/17 at 23:45; Stop 02/11/17 at 23:44 Aripiprazole (AbiLIFY) 2.5 mg BID PO Last administered on 01/16/17 08:38; Start 01/13/17 at 09:00; Stop 01/16/17 at 12:53; Status DC Aripiprazole (AbiLIFY) 5 mg BID PO ; Start 01/16/17 at 21:00; Stop 02/15/17 at 20:59 Bupropion HCl (Wellbutrin Xl) 150 mg DAILY PO Last administered on 01/16/17 08 :38; Start 01/14/17 at 09:00; Stop 01/16/17 at 12:54; Status DC Bupropion HCl (Wellbutrin Xl) 300 mg DAILY PO Last administered on 01/13/17 08 :57; Start 01/13/17 at 09:00; Stop 01/13/17 at 12:21; Status DC Famotidine (Pepcid) 1 mg DAILY PO ; Start 01/13/17 at 09:00; Stop 01/13/17 at 12 :48; Status DC Famotidine (Pepcid) 20 mg DAILY PO Last administered on 01/16/17 08:38; Start 01/13/17 at 12:48; Stop 02/12/17 at 08:59 Gabapentin (Neurontin) 300 mg TID PO Last administered on 01/16/17 16:03; Start 01/12/17 at 21:00; Stop 02/11/17 at 20:59 Home Med (Med Rec Complete!) ASDIRECTED XX ; Start 01/12/17 at 20:30; Stop at 20:30; Status DC Hydroxyzine HCl (Atarax) 75 mg Q4HP PRN PO ANXIETY Last administered on 21:50; Start 01/14/17 at 11:00; Stop 01/16/17 at 12:54; Status DC Hydroxyzine HCl (Atarax) 100 mg Q4HP PRN PO ANXIETY Last administered on 19:44; Start 01/16/17 at 13:00; Stop 02/15/17 at 12:59 Ibuprofen (Advil) 800 mg Q6HP PRN PO MODERATE PAIN (PS 5-7) Last administered on 01/14/17 13:27; Start 01/12/17 at 23:45; Stop 02/11/17 at 23:44 Magnesium Hydroxide (Milk Of Magnesia) 30 ml DAILYPRN PRN PO CONSTIPATION; Start 01/12/17 at 23:45; Stop 02/11/17 at 23:44 Miscellaneous (Unresolved Patient Own Med Order) SEE LABEL COMMENTS UNRESOLVED XX ; Start 01/14/17 at 00:01; Stop 01/14/17 at 14:35; Status DC Olanzapine (ZyPREXA ZYDIS) 5 mg Q6HP PRN PO ANXIETY/AGITATION Last administered on 01/16/17 11:25; Start 01/14/17 at 11:00; Stop 02/13/17 at 10: 59 Patient Own Medication (Patient'S Own Med) APPLY TOPICALLY TO PLAN... QHS TOP Last administered on 01/15/17 22:08; Start 01/14/17 at 21:00; Stop 02/13/17 at 20:59 Prazosin HCl (Minipress) 2 mg QHS PO Last administered on 01/15/17 21:39; Start 01/13/17 at 21:00; Stop 02/12/17 at 20:59 Quetiapine Fumarate (SEROquel) 100 mg QHS PO Last administered on 01/15/17 21: 39; Start 01/13/17 at 21:00; Stop 02/12/17 at 20:59 Sertraline HCl (Zoloft) 75 mg DAILY PO ; Start 01/17/17 at 09:00; Stop 02/16/17 at 08:59 Trazodone HCl (Desyrel) 50 mg QHSP PRN PO INSOMNIA; Start 01/12/17 at 23:45; Stop 02/11/17 at 23:44; Status Cancel Allergies Coded Allergies: No Known Allergies (Unverified , 10/11/16) HEIDI RODRIGUEZ MD Jan 16, 2017 20:40
[2017-01-16] MEDS: PRAZOSIN 1 MG CAP PO SCH (21:05)
[2017-01-16] MEDS: FLUOROURACIL 5% TOP SCH (21:06)
[2017-01-16] MEDS: QUEtiapine FUMARATE 100 MG TAB PO SCH (22:20)
[2017-01-17 06:35] VITALS: BP 130/58
[2017-01-17] MEDS: GABAPENTIN 300 MG CAP PO SCH ×3 (09:19→21:17)
[2017-01-17] MEDS: SERTRALINE HCL 25 MG TABLET PO SCH (09:19)
[2017-01-17] MEDS: FAMOTIDINE 20 MG TAB PO SCH (09:19)
[2017-01-17] MEDS: OLANZapine ORAL DISINTEGRATING TAB 5MG PO PRN ×2 (14:32→21:17)
[2017-01-17 18:18] VITALS: BP 136/85
[2017-01-17] MEDS: PRAZOSIN 1 MG CAP PO SCH (21:17)
[2017-01-17] MEDS: FLUOROURACIL 5% TOP SCH (21:17)
[2017-01-17] MEDS: QUEtiapine FUMARATE 100 MG TAB PO SCH (22:14)
[2017-01-18 06:51] VITALS: BP 120/60
[2017-01-18] MEDS: FAMOTIDINE 20 MG TAB PO SCH (08:51)
[2017-01-18] MEDS: GABAPENTIN 300 MG CAP PO SCH ×3 (08:51→21:10)
[2017-01-18] MEDS: SERTRALINE HCL 25 MG TABLET PO SCH (08:51)
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
[2017-01-18] MEDS: OLANZapine ORAL DISINTEGRATING TAB 5MG PO PRN (11:01)
[2017-01-18 18:00] VITALS: BP 122/78
[2017-01-18] MEDS: PRAZOSIN 1 MG CAP PO SCH (21:09)
[2017-01-18] MEDS: FLUOROURACIL 5% TOP SCH (22:17)
[2017-01-18] MEDS: QUEtiapine FUMARATE 100 MG TAB PO SCH (22:17)
[2017-01-19 06:27] VITALS: BP 133/77
[2017-01-19] MEDS: GABAPENTIN 300 MG CAP PO SCH ×3 (08:08→20:32)
[2017-01-19] MEDS: SERTRALINE HCL 25 MG TABLET PO SCH (08:08)
[2017-01-19] MEDS: FAMOTIDINE 20 MG TAB PO SCH (08:08)
[2017-01-19] MEDS: OLANZapine ORAL DISINTEGRATING TAB 5MG PO PRN ×2 (13:34→20:32)
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
[2017-01-19 18:58] VITALS: BP 140/90
[2017-01-19 20:32] VITALS: BP 152/86
[2017-01-19] MEDS: QUEtiapine FUMARATE 100 MG TAB PO SCH (20:32)
[2017-01-19] MEDS: PRAZOSIN 1 MG CAP PO SCH (20:32)
[2017-01-19] MEDS: FLUOROURACIL 5% TOP SCH (20:34)
[2017-01-20 07:14] VITALS: BP 130/86
[2017-01-20] MEDS: IBUPROFEN 800 MG TAB PO PRN (08:10)
[2017-01-20] MEDS: SERTRALINE HCL 25 MG TABLET PO SCH (08:10)
[2017-01-20] MEDS: FAMOTIDINE 20 MG TAB PO SCH (08:10)
[2017-01-20] MEDS: GABAPENTIN 300 MG CAP PO SCH (08:10)
[2017-01-20] MEDS ORDERED: ARIPiprazole MONOHYDRATE 400 MG INJ (ABILIFY)(J0401) IM SCH (09:00)
[2017-01-20] MEDS: hydrOXYzine 50 MG TAB PO PRN (10:13)
[2017-01-20] MEDS ORDERED: OLANZapine ORAL DISINTEGRATING TAB 5MG PO PRN ×2 (10:45→11:30)
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
[2017-01-20] MEDS ORDERED: SERT25TA PO (15:22)
[2017-01-20] MEDS ORDERED: QUET1TAB8 PO (15:22)
[2017-01-20] MEDS ORDERED: MINI1CAP PO (15:22)
[2017-01-20] MEDS ORDERED: ABIL400I IM (15:22)
[2017-01-20] MEDS ORDERED: OLAN5ZYD PO (15:22)
[2017-01-20] MEDS ORDERED: GABAPENTIN 300 MG CAP PO SCH (16:00)
[2017-01-20] MEDS ORDERED: ABIL1TAB11 PO (17:05)
[2017-01-21] MEDS ORDERED: GABA-283 PO (09:30)
== END 2017-01-20 17:33 | disposition home or self-care (01) | DRG 755 ==
LOC: M ED 16:47 → M ED INP 20:41 → M PSY 23:01
PROVIDERS: ADMIT Psychiatry & Neurology Psychiatry; ATTEND Psychiatry & Neurology Psychiatry
DX: F43.10 Post-traumatic stress disorder, unspecified (principal); R45.851 Suicidal ideations; F31.9 Bipolar disorder, unspecified; F43.23 Adjustment disorder with mixed anxiety and depressed mood; Z79.899 Other long term (current) drug therapy; B07.0 Plantar wart; M26.629 Arthralgia of temporomandibular joint, unspecified side